=== PATIENT | male | born 1985 | race Caucasian/White ===

== ENCOUNTER 2017-11-23 22:06 | Emergency (ER) | payer OTHER ==
[~2017-11-23] VITALS: Ht 177.8 cm; Wt 124.7 kg
[2017-11-23] MEDS ORDERED: ZYLOPRIM100 MG (22:17)
[2017-11-23] MEDS ORDERED: SYNTHROID50 MCG (22:17)
[2017-11-23] MEDS ORDERED: BENICAR40 MG (22:17)
[2017-11-24] MEDS ORDERED: LOSARTAN POTASS25 MG PO (01:14)
== END 2017-11-24 01:11 | disposition home or self-care (01) ==
LOC: ER 22:06
DX: I10 Essential (primary) hypertension (principal)